=== PATIENT | male | born 1960 | race Caucasian/White ===

== ENCOUNTER 2016-11-15 11:59 | Emergency (ER) | payer OTHER ==
[2016-11-15] MEDS ORDERED: CATAPRES ONE (13:11)
[2016-11-15 13:18] VITALS: BP 211/143
[2016-11-15] MEDS: CATAPRES PO ONE (13:21)
[2016-11-15 13:49] LABS: Basophils % (Auto) 1.1 % (0.0-1.8); Eosinophils % (Auto) 1.6 % (0.0-4.3); Hemoglobin 13.9 gm/dl (11.8-15.2); Mean Corpuscular HGB Conc 33 % (32-34); Mean Corpuscular Hemoglobin 29 pg (28-32); Mean Corpuscular Volume 87 fl (84-94); Platelet Count 142 K/mm3 (140-440); Red Blood Count 4.85 M/mm3 (3.65-5.03); Red Cell Distribution Width 13.3 % (13.2-15.2); White Blood Count 6.2 K/mm3 (4.5-11.0)
[2016-11-15 14:03] LABS: Chloride 76.1 mmol/L (98-107)
[2016-11-15 14:43] LABS: Calcium 9.3 mg/dL (8.4-10.2); Potassium 3.9 mmol/L (3.6-5.0)
[2016-11-15 15:04] LABS: Creatine Kinase 103 units/L (55-170); Creatine Kinase MB 2.3 ng/mL (0.0-4.0)
== END 2016-11-15 23:00 | disposition left against medical advice (07) ==
LOC: ED 11:59
DX: M54.9 Dorsalgia, unspecified (principal); R51 Headache; Z53.21 Procedure and treatment not carried out due to patient leaving prior to being seen by health care provider
CPT/HCPCS: 36415; 80048; 82550; 82553; 84484; 85025

== ENCOUNTER 2016-11-16 00:03 | Emergency (ER) | payer SELFPAY ==
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
[2016-11-16] MEDS ORDERED: CATAPRES PO ONE (04:37)
[2016-11-16 05:27] VITALS: BP 188/112
== END 2016-11-16 05:41 | disposition home or self-care (01) ==
LOC: ED 00:03
DX: R51 Headache (principal); M54.5 Low back pain; M54.2 Cervicalgia; I10 Essential (primary) hypertension; V49.9XXA Car occupant (driver) (passenger) injured in unspecified traffic accident, initial encounter; Y93.89 Activity, other specified; Y99.9 Unspecified external cause status; Y92.410 Unspecified street and highway as the place of occurrence of the external cause
CPT/HCPCS: 99282